=== PATIENT | male | born 1985 | race Caucasian/White ===

== ENCOUNTER 2018-10-08 15:36 | Outpatient (CLI) ==
[2018-10-08 16:11] VITALS: BMI 21.9
== END 2018-10-08 15:43 | disposition critical access hospital (66) ==
LOC: AMBL 15:36
PROVIDERS: ATTEND Emergency Medicine
DX: E10.649 Type 1 diabetes mellitus with hypoglycemia without coma (principal); R47.81 Slurred speech; R41.0 Disorientation, unspecified

== ENCOUNTER 2018-10-08 15:57 | Emergency (ER) ==
[2018-10-08 16:11] VITALS: BP 106/48; TEMP 97.4; BMI 21.9
--- NOTE | 2018-10-08 17:02 | ED.PDOC ---
General ED Provider: Dr. MARIA ALEJANDRA DOS SANTOS Chief Complaint: Hypoglycemia Stated Complaint: Hypoglycemic reaction at home. Feels better now. Denies recent illness. Denies N-V-D. Had blunted mentation for 30 min before being capable of calling 911 for help. States he had tendency to remain sl fluid deficit and indicated he does not drink enough. Receiving IV normal saline upon arrival to ER Time Seen by Physician: 16:15 Mode of Arrival: Stretcher Information Source: Patient, EMT Exam Limitations: No limitations Primary Care Provider: MARIA ALEJANDRA JERRY Nursing and Triage Documentation Reviewed and Agree: Yes Does patient meet sepsis criteria?: No System Inflammatory Response Syndrome: Not Applicable Sepsis Protocol: For patient's 13 years and over: Temp is 96.8 and below OR 101 and greater Pulse >90 BPM Resp >20/minute Acutely Altered Mental Status Are patient's symptoms suggestive of a new infection, such as: -Pneumonia -Skin, Soft Tissue -Endocarditis -UTI -Bone, Joint Infection -Implantable Device -Acute Abdominal Infection -Wound Infection -Meningitis -Blood Stream Catheter Infection -Unknown Endocrine Complaint Exam - Diabetic Complication Complaint/Exam Onset/Duration: Earlier this afternoon Symptoms Are: Still present (but improved) Timing: Intermittent Initial Severity: Severe Current Severity: Mild Character: Confused, Lethargic Aggravating: Reports: Diet change Alleviating: Reports: EMS treatment Associated Signs and Symptoms: Reports: Decreased LOC, Polydipsia, Polyuria, Nausea Related History: Reports: Similar episode, DM 1 Cardiac Risk Factors: Reports: None CVA Risk Factors: Reports: None Serious Bacterial Infection Risk Factors: Reports: None Related Surgical History: Reports: None Acetone on Breath: No Dry Mucous Membranes: Yes Kussmaul Respirations: No Meningeal Signs: No Focal Weakness: None Focal Sensory Loss: None Gait: Normal Nystagmus Present: No Gag Reflex Present: Yes Finger to Nose: Normal Differential Diagnoses: Hypoglycemia Review of Systems - Review Of Systems Constitutional: Reports: Weakness Eyes: Reports: Blurred vision Ears, Nose, Mouth, Throat: Reports: No symptoms Respiratory: Reports: No symptoms Cardiac: Reports: No symptoms GI: Reports: No symptoms : Reports: No symptoms Musculoskeletal: Reports: No symptoms Skin: Reports: No symptoms Neurological: Reports: No symptoms Endocrine: Reports: Other (Hypoglycemia ) Hematologic/Lymphatic: Reports: No symptoms All Other Systems: Reviewed and Negative Past Medical History - Past Medical History Endocrine: Reports: DM 1 Cardiovascular: Reports: None Respiratory: Reports: None Hematological: Reports: None Gastrointestinal: Reports: None Genitourinary: Reports: None Neuro/Psych: Reports: None Musculoskeletal: Reports: None Cancer: Reports: None - Surgical History General Surgical History: Reports: None - Family History Family History: Reports: None - Social History Smoking Status: Current some day smoker, Heavy tobacco smoker Hx Substance Use: No Alcohol Screening: None Lives: With family Physical Exam - Physical Exam Appearance: Well-appearing Ill-appearing: Mild Pain Distress: None Eyes: HIGINIO, EOMI, Conjunctiva clear ENT: Ears normal Neck: Supple Respiratory: Airway patent, Breath sounds clear, Breath sounds equal Cardiovascular: RRR, Pulses normal, No rub, No murmur GI/: Soft, Nontender, No masses, Bowel sounds normal, No Organomegaly Musculoskeletal: Normal strength, ROM intact, No edema, No calf tenderness Skin: Warm, Dry, Normal color Neurological: Sensation intact, Motor intact, Reflexes intact, Cranial nerves intact, Alert, Oriented Psychiatric: Affect appropriate, Mood appropriate Re-Evaluation - Re-Evaluation Time of Re-Evaluation: 17:40 Status: Improved Vital Signs Stable: Yes Appearance: NAD Lungs: Clear Skin: Warm and Dry Neuro: Alert and Oriented X3 CV: RRR Additional Comments: Discussed additonal tx options for hypoglycemia Critical Care Note - Critical Care Note Total Time (mins): 60 Course - Course Hematology/Chemistry: 10/08/18 16:41 10/08/18 19:16 Orders, Labs, Meds: Lab Review 10/08/18 10/08/18 10/08/18 16:41 16:41 17:19 WBC 11.46 H RBC 4.65 L Hgb 14.8 Hct 43.0 MCV 92.5 MCH 31.8 H MCHC 34.4 RDW Coeff of Sivan 11.9 Plt Count 318 Immature Gran % (Auto) 0.3 Neut % (Auto) 89.7 Lymph % (Auto) 5.1 L [place] % (Auto) 4.4 Eos % (Auto) 0.3 Baso % (Auto) 0.2 Immature Gran # (Auto) 0.0 Neut # (Auto) 10.3 H Lymph # (Auto) 0.6 [place] # (Auto) 0.5 Eos # (Auto) 0.0 Baso # (Auto) 0.0 Sodium 138.1 Potassium 3.94 Chloride 104.9 Carbon Dioxide 24.2 Anion Gap 12.94 BUN 19.1 Creatinine 0.70 Estimated GFR (MDRD) 131.00 BUN/Creatinine Ratio 27.28 Glucose 114.7 H Calcium 8.90 Total Bilirubin 0.60 AST 41.1 ALT 32.6 Alkaline Phosphatase 78.4 Total Protein 6.90 Albumin 4.44 Globulin 2.46 Albumin/Globulin Ratio 1.80 Urine Color Yellow Urine Clarity Clear Urine pH 6.0 Ur Specific [place] >=1.030 Urine Protein 1+ Urine Glucose (UA) 1+ Urine Ketones 1+ Urine Blood Negative Urine Nitrite Negative Urine Bilirubin Negative Urine Urobilinogen 0.2 Ur Leukocyte Esterase Negative Urine Microscopic WBC 0-2 Ur Squamous Epith Cells Not present Urine Mucus Trace Urine Opiates Screen Ur Oxycodone Screen Urine Methadone Screen Ur Propoxyphene Screen Ur Barbiturates Screen U Tricyclic Antidepress Ur Phencyclidine Scrn Ur Amphetamine Screen U Methamphetamines Scrn U Benzodiazepines Scrn Urine Cocaine Screen U Cannabinoids Screen 10/08/18 10/08/18 17:19 19:16 WBC RBC Hgb Hct MCV MCH MCHC RDW Coeff of Sivan Plt Count Immature Gran % (Auto) Neut % (Auto) Lymph % (Auto) [place] % (Auto) Eos % (Auto) Baso % (Auto) Immature Gran # (Auto) Neut # (Auto) Lymph # (Auto) [place] # (Auto) Eos # (Auto) Baso # (Auto) Sodium 136.7 Potassium 4.39 Chloride 105.8 Carbon Dioxide 23.4 Anion Gap 11.89 BUN 18.6 Creatinine 0.65 Estimated GFR (MDRD) 142.00 BUN/Creatinine Ratio 28.61 Glucose 166.5 H D Calcium 8.24 L Total Bilirubin AST ALT Alkaline Phosphatase Total Protein Albumin Globulin Albumin/Globulin Ratio Urine Color Urine Clarity Urine pH Ur Specific [place] Urine Protein Urine Glucose (UA) Urine Ketones Urine Blood Urine Nitrite Urine Bilirubin Urine Urobilinogen Ur Leukocyte Esterase Urine Microscopic WBC Ur Squamous Epith Cells Urine Mucus Urine Opiates Screen Negative Ur Oxycodone Screen Negative Urine Methadone Screen Negative Ur Propoxyphene Screen Negative Ur Barbiturates Screen Negative U Tricyclic Antidepress Negative Ur Phencyclidine Scrn Negative Ur Amphetamine Screen Negative U Methamphetamines Scrn Negative U Benzodiazepines Scrn Negative Urine Cocaine Screen Negative U Cannabinoids Screen Positive Orders Category Date Time Status EKG-(ED ONLY) Stat CARDIO 10/08/18 16:18 Completed BLOOD CULTURE (ED ONLY) Stat LAB 10/08/18 16:41 Results BMP [BASIC METABOLIC PANEL] Stat LAB 10/08/18 19:16 Completed CBC W/ AUTO DIFF Stat LAB 10/08/18 16:41 Completed CMP [COMPREHENSIVE METABOLIC PANEL] Stat LAB 10/08/18 16:41 Completed UA [URINALYSIS C & S IF INDICATED] Stat LAB 10/08/18 17:19 Completed URINE DRUG SCREEN (RAPID FOR ED) [DRUG SCREEN, URINE, LAB 10/08/18 17:19 Completed RAPID] Stat Sodium Chloride 0.9% [Sodium Chloride] 1,000 ml MEDS 10/08/18 18:14 Discontinued IV BOLUS Medications Discontinued Medications Generic Name Dose Route Start Last Admin Trade Name Freq PRN Reason Stop Dose Admin Sodium Chloride 1,000 mls @ 1,000 mls/hr 10/08/18 18:14 10/08/18 18:24 Sodium Chloride IV 10/08/18 19:13 1,000 mls/hr BOLUS STA Administration Vital Signs: Temp Pulse Resp BP Pulse Ox 10/08/18 15:58 97.4 F L 60 20 106/48 L 95 Departure - Departure Time of Disposition: 18:00 Disposition: HOME SELF-CARE Discharge Problem: Hypoglycemia, DM I (diabetes mellitus, type I), Dehydration Instructions: Dehydration (ED), Type 1 Diabetes in Adults: New Diagnosis (ED), Hypoglycemia in a Person with Diabetes (ED), What to Do if Your Blood Sugar is Low (ED) Condition: Good Pt referred to PMD for follow-up: Yes IPMP verified?: No Additional Instructions: Keep Glucose Gel available for incidents of low Blood glucose Monitor BS 4-6 times daily Do not Skip Meals Remain on diet for diabetes Continue current medical theapy Stay well hydrated See PCP in next 48 hrs Allergies/Adverse Reactions: Allergies No Known Allergies Allergy (Unverified 01/11/13 13:29) Home Medications: Ambulatory Orders Cetirizine HCl [Zyrtec] 10 mg PO DAILY PRN 10/08/18 Disposition Discussed With: Patient, Family
[2018-10-08] MEDS ORDERED: SODIUM CHLORIDE 1,000 ML IV STA (18:14)
== END 2018-10-08 19:58 | disposition home or self-care (01) ==
LOC: ED 15:57
DX: E10.649 Type 1 diabetes mellitus with hypoglycemia without coma (principal); E86.0 Dehydration; F17.210 Nicotine dependence, cigarettes, uncomplicated
CPT/HCPCS: 36415; 80048; 80053; 80306; 81001; 85025; 87040; 93005; 93010; 96360; 99285